=== PATIENT | male | born 1965 | race Caucasian/White ===

== ENCOUNTER 2016-06-21 20:21 | Emergency (ER) | payer OTHER ==
[~2016-06-21] VITALS: Ht 165.1 cm; Wt 62.6 kg
[2016-06-21 21:03] VITALS: BP 153/78
--- NOTE | 2016-06-22 10:55 | Emergency Room Report ---
History of Present Illness General Chief Complaint: Foreign Body Source: Patient Present Illness HPI Patient presents with complaints of foreign body in the right ear Patient had a walkie-talkie piece in the right ear As he attempted to pull it out A part of it was retained Denies any pain Denies any headache This occurred just about one hour prior to arrival Allergies: Coded Allergies: No Known Allergies (Unverified , 06/21/16) Patient History Past Medical History: see triage record Pertinent Family History: none Reviewed Nursing Documentation: PMH: Agreed, PSxH: Agreed Nursing Documentation-PMH Past Medical History: No History, Except For Hx Hypertension: Yes Review of Systems All Other Systems: negative except mentioned in HPI Physical Exam Vital Signs Date Time Temp Pulse Resp B/P Pulse Ox O2 Delivery O2 Flow Rate FiO2 06/21/16 20:35 99.0 95 18 162/80 97 Room Air Sp02 EP Interpretation: reviewed, normal General Appearance: well appearing, no apparent distress Head: normocephalic, atraumatic Eyes: bilateral eye EOMI, bilateral eye PERRL ENT: other - Patient has appearance of a foreign body in the right ear, appears to be clear, no other erythema Neck: full range of motion, supple Musculoskeletal: normal inspection Neurologic: alert, oriented x3, responsive Skin: no rash, warm/dry Lymphatic: no adenopathy Medical Decision Making Diagnostic Impression: Primary Impression: foreign body Additional Impression: foreign body removal ER Course Using alligator forceps, I was able to obtain a good holding of the foreign body , and it was removed using standard procedure, the entire earpiece was removed, and the ear was reevaluated no signs of any retained foreign body no signs of trauma Patient tolerated the procedure well and a stable for close followup Last Vital Signs Date Time Temp Pulse Resp B/P Pulse Ox O2 Delivery O2 Flow Rate FiO2 06/21/16 21:03 88 16 153/78 100 Room Air 06/21/16 21:03 98.0 Status: improved Disposition: HOME, SELF-CARE Condition: Improved Referrals: NOT CHOSEN IPA/,REFERRING (PCP) Patient Instructions: Ear Foreign Body, [id number] Additional Instructions: Patient is provided with the discharge instructions notified to follow up with primary doctor in the next 2-3 days otherwise return to the er with any worsening symptoms. RAS ELENA D.O. Jun 22, 2016 10:55
== END 2016-06-21 21:03 | disposition home or self-care (01) ==
LOC: EMR 21:01
DX: T16.1XXA Foreign body in right ear, initial encounter (principal); X58.XXXA Exposure to other specified factors, initial encounter; Y92.9 Unspecified place or not applicable; I10 Essential (primary) hypertension
CPT/HCPCS: 99284